=== PATIENT | male | born 1935 | race Two or more races ===

== ENCOUNTER 2016-10-07 14:04 | Outpatient (CLI) | payer MEDICARE, MEDICAID | END 2016-10-07 23:59 | disposition home or self-care (01) | LOC: WOU 14:04 | PROVIDERS: ATTEND Surgery | DX: L98.411 Non-pressure chronic ulcer of buttock limited to breakdown of skin (principal); L30.9 Dermatitis, unspecified; I25.10 Atherosclerotic heart disease of native coronary artery without angina pectoris; Z95.5 Presence of coronary angioplasty implant and graft; Z98.62 Peripheral vascular angioplasty status; I48.91 Unspecified atrial fibrillation; Z95.0 Presence of cardiac pacemaker; E11.9 Type 2 diabetes mellitus without complications; Z79.899 Other long term (current) drug therapy | CPT/HCPCS: 11042; 87070; 87075; 87077; A6209 ×2; A6402 ==

== ENCOUNTER 2016-10-14 14:06 | Outpatient (CLI) | payer MEDICARE, MEDICAID | END 2016-10-14 23:59 | disposition home or self-care (01) | LOC: WOU 14:06 | PROVIDERS: ATTEND Surgery | DX: L25.8 Unspecified contact dermatitis due to other agents (principal); B95.62 Methicillin resistant Staphylococcus aureus infection as the cause of diseases classified elsewhere; I25.119 Atherosclerotic heart disease of native coronary artery with unspecified angina pectoris; I48.91 Unspecified atrial fibrillation; Z95.0 Presence of cardiac pacemaker; M19.90 Unspecified osteoarthritis, unspecified site; L40.9 Psoriasis, unspecified; J44.9 Chronic obstructive pulmonary disease, unspecified; J45.909 Unspecified asthma, uncomplicated; Z95.820 Peripheral vascular angioplasty status with implants and grafts; I87.2 Venous insufficiency (chronic) (peripheral); L97.811 Non-pressure chronic ulcer of other part of right lower leg limited to breakdown of skin; E11.9 Type 2 diabetes mellitus without complications; Z79.02 Long term (current) use of antithrombotics/antiplatelets | CPT/HCPCS: 11042; A6402 ==